=== PATIENT | female | born 1940 | race Caucasian/White ===

== ENCOUNTER 2017-09-19 12:57 | Emergency (ER) | payer MEDICARE, OTHER ==
--- NOTE | 2017-09-19 14:26 | UC ---
Respiratory Complaint HPI - HPI Summary HPI Summary: cc: cough x 2 weeks 77 y/o female with pmhx of HTN, DM, RA , MUSCULAR DYSTROPHY 2 WEEKS HX OF PRODUCTIVE COUGH, SORE MOUTH AND LIPS NO NASAL CONGESTION, NO RUNNY NOSE, NO FEVER, NO CHILLS DENIES ANY SOB , - History of Current Complaint Chief Complaint: UCRespiratory Stated Complaint: COUGH,CHEST LISSA Time Seen by Provider: 09/19/17 13:26 Hx Obtained From: Patient, Family/Engine Repairer Onset/Duration: Gradual Onset, Lasting Weeks - 2, Still Present Severity Initially: Moderate Severity Currently: Moderate Character: Cough: Productive Aggravating Factors: Exertion, Deep Breaths Alleviating Factors: Nothing Associated Signs And Symptoms: Negative: Dyspnea, Fever, Chills, Pleuritic Chest Pain, Wheezing, Hemoptysis, Dizziness, Calf Pain, Calf Swelling, Edema, URI, Nasal Congestion, Hoarseness, Sinus Discomfort - Allergies/Home Medications Allergies/Adverse Reactions: Allergies Allergy/AdvReac Type Severity Reaction Status Date / Time Codeine Allergy Intermediate Unknown Verified 09/19/17 13:27 Reaction Details Morphine Allergy Shakes Verified 09/19/17 13:27 Home Medications: Home Medications Spironolactone TAB* [Aldactone TAB*] 25 mg PO DAILY 09/19/17 [History Confirmed 09/19/17] PMH/Surg Hx/FS Hx/Imm Hx Endocrine History: Diabetes Cardiovascular History: Hypertension - Surgical History Surgical History: Yes Surgery Procedure, Year, and Place: rt knee replacement. HYSTERECTOMY, APPENDECTOMY - Family History Known Family History: Positive: Hypertension, Diabetes - Social History Alcohol Use: None Substance Use Type: None Smoking Status (MU): Never Smoked Tobacco - Immunization History Most Recent Tetanus Shot: unknown Review of Systems Constitutional: Negative Skin: Negative Eyes: Negative ENT: Negative Respiratory: Cough Cardiovascular: Negative Gastrointestinal: Negative Genitourinary: Negative Is Patient Immunocompromised?: No All Other Systems Reviewed And Are Negative: Yes Physical Exam Triage Information Reviewed: Yes Appearance: Ill-Appearing, Pain Distress, Thin Vital Signs: Initial Vital Signs Temp 98.8 F 09/19/17 13:19 Pulse 55 09/19/17 13:19 Resp 12 09/19/17 13:19 BP 105/50 09/19/17 13:19 Pulse Ox 96 09/19/17 13:19 Vital Signs Reviewed: Yes Eyes: Positive: Conjunctiva Clear ENT: Positive: Normal ENT inspection, Hearing grossly normal, Pharyngeal erythema, Other - DRY MM Neck exam: Normal Neck: Positive: Supple, Nontender, No Lymphadenopathy Respiratory: Positive: Chest non-tender, Decreased breath sounds Cardiovascular: Positive: Bradycardia Abdomen Description: Positive: Nontender, Soft Bowel Sounds: Positive: Present Skin Exam: Normal UC Diagnostic Evaluation - Laboratory O2 Sat by Pulse Oximetry: 96 Respiratory Course/Dx - Differential Dx/Diagnosis Provider Diagnoses: HYPOTENSION. BRADYCARDIA. BRONCHITIS Discharge - Discharge Plan Condition: Fair Disposition: AGAINST MEDICAL ADVICE Patient Education Materials: Acute Bronchitis (ED), Hypotension (ED), Bradycardia (ED) Referrals: Addy Galindo MD [Primary Care Provider] - Additional Instructions: PLEASE GO TO [facility] ED FOR EVAL CONCERN ABOUT POSSIBLE PNEUMONIA / DEHYDRATION
--- NOTE | 2017-09-19 14:36 | RAD ---
HISTORY: Cough COMPARISONS: August 10, 2009 VIEWS: 4: Frontal dual-energy and lateral views of the chest. FINDINGS: CARDIOMEDIASTINAL SILHOUETTE: The cardiomediastinal silhouette is normal. AMANDA: The amanda are normal. PLEURA: The costophrenic angles are sharp. No pleural abnormalities are noted. LUNG PARENCHYMA: There is hyperinflation with flattening of the diaphragm and expansion of the AP diameter of the chest. ABDOMEN: The upper abdomen is clear. There is no subphrenic gas. BONES AND SOFT TISSUES: Degenerative changes are noted along the spine. OTHER: None. IMPRESSION: HYPERINFLATION, CONSISTENT WITH COPD. NO ACTIVE CARDIOPULMONARY DISEASE.
[2017-09-19 14:50] VITALS: BP 114/50
== END 2017-09-19 14:49 ==
LOC: UCCORT 12:57
DX: J40 Bronchitis, not specified as acute or chronic (principal); I95.9 Hypotension, unspecified; R00.1 Bradycardia, unspecified; I10 Essential (primary) hypertension; E11.9 Type 2 diabetes mellitus without complications; Z88.5 Allergy status to narcotic agent
CPT/HCPCS: 71046; 99212; G0463